=== PATIENT | female | born 1960 | race Caucasian/White ===

== ENCOUNTER 2017-04-15 10:36 | Day surgery (SDC) | payer MEDICARE, OTHER ==
[~2017-04-15 10:36] MED LIST: AMLO5 PO; ASPI325 PO; ASPI81CH PO; Augmentin 875-1 EACH PO; CARV25 PO; CARV3.125 PO; CHOL10002 PO; CLOP75 PO; Calcium Carbon650 MG PO; Cleocin HCl300 MG PO; Coreg CR20 MG PO; Coreg Cr10 MG PO; FAMO20 PO; FLUO10 PO; FLUO20; FURO20 PO; INSLI100I; INSULANI; LEVSOD50; LEVSOD75 PO; LOSA50 PO; Multivitamin1 EAC1 PO; Myfortic360 MG PO; NIFE30ER PO; OLME20; PRED5 PO; ROSU10TA; TACR1 PO; TRAVER4240; Valcyte450 MG PO; [UNRECOGNIZED DRUG - OTHER]
== END 2017-04-15 22:52 | disposition home or self-care (01) ==
LOC: WOUND 10:36
PROC: 0HBKXZZ Excision of Right Lower Leg Skin, External Approach (ICD-10-PCS; principal; 2017-04-15)
DX: Z48.00 Encounter for change or removal of nonsurgical wound dressing (principal); E10.621 Type 1 diabetes mellitus with foot ulcer; L97.212 Non-pressure chronic ulcer of right calf with fat layer exposed; E10.22 Type 1 diabetes mellitus with diabetic chronic kidney disease; Z94.0 Kidney transplant status; Z94.83 Pancreas transplant status
CPT/HCPCS: G0463

== ENCOUNTER 2017-04-22 10:40 | Day surgery (SDC) | payer MEDICARE, BC | END 2017-04-22 11:56 | disposition home or self-care (01) | LOC: WOUND 10:40 | DX: Z48.00 Encounter for change or removal of nonsurgical wound dressing (principal); E11.622 Type 2 diabetes mellitus with other skin ulcer; L97.212 Non-pressure chronic ulcer of right calf with fat layer exposed; E11.22 Type 2 diabetes mellitus with diabetic chronic kidney disease; E11.21 Type 2 diabetes mellitus with diabetic nephropathy; Z94.0 Kidney transplant status; Z94.83 Pancreas transplant status | CPT/HCPCS: G0463 ==

== ENCOUNTER 2017-04-29 10:30 | Day surgery (SDC) | payer MEDICARE, BC | END 2017-04-29 11:05 | disposition home or self-care (01) | LOC: WOUND 10:30 | DX: Z48.00 Encounter for change or removal of nonsurgical wound dressing (principal); E10.622 Type 1 diabetes mellitus with other skin ulcer; L97.812 Non-pressure chronic ulcer of other part of right lower leg with fat layer exposed; E10.21 Type 1 diabetes mellitus with diabetic nephropathy; E10.22 Type 1 diabetes mellitus with diabetic chronic kidney disease; N18.9 Chronic kidney disease, unspecified; Z94.83 Pancreas transplant status; Z94.0 Kidney transplant status | CPT/HCPCS: G0463 ==

== ENCOUNTER 2017-05-05 13:38 | Day surgery (SDC) | payer MEDICARE, BC | END 2017-05-05 22:52 | disposition home or self-care (01) | LOC: ORD 13:38 → ORSCMMR 13:38 → RAD 13:38 → ORSCMMR 13:39 → RAD 14:00 → ORD 22:52 → ORSCMMR 22:52 | PROVIDERS: Radiology Diagnostic Radiology | PROC: BT1BYZZ Fluoroscopy of Bladder and Urethra using Other Contrast (ICD-10-PCS; principal; 2017-05-05 13:30) | DX: Z87.440 Personal history of urinary (tract) infections (principal); Z79.899 Other long term (current) drug therapy; Z94.0 Kidney transplant status; Z94.83 Pancreas transplant status | CPT/HCPCS: 51600; 74455; Q9967 ==

== ENCOUNTER 2017-05-06 10:40 | Day surgery (SDC) | payer MEDICARE, BC | END 2017-05-06 14:53 | disposition home or self-care (01) | LOC: WOUND 10:40 | DX: Z48.00 Encounter for change or removal of nonsurgical wound dressing (principal); E10.21 Type 1 diabetes mellitus with diabetic nephropathy; E10.622 Type 1 diabetes mellitus with other skin ulcer; L97.212 Non-pressure chronic ulcer of right calf with fat layer exposed; Z94.0 Kidney transplant status; Z94.83 Pancreas transplant status | CPT/HCPCS: G0463 ==

== ENCOUNTER 2017-05-13 00:31 | Day surgery (SDC) | payer MEDICARE, BC | END 2017-05-13 10:59 | disposition home or self-care (01) | LOC: WOUND 00:31 | DX: Z48.00 Encounter for change or removal of nonsurgical wound dressing (principal); E10.621 Type 1 diabetes mellitus with foot ulcer; L97.212 Non-pressure chronic ulcer of right calf with fat layer exposed; E10.21 Type 1 diabetes mellitus with diabetic nephropathy; E10.22 Type 1 diabetes mellitus with diabetic chronic kidney disease | CPT/HCPCS: G0463 ==

== ENCOUNTER 2017-05-19 10:44 | Day surgery (SDC) | payer MEDICARE, BC | END 2017-05-19 23:01 | disposition home or self-care (01) | LOC: WOUND 10:44 | DX: Z48.00 Encounter for change or removal of nonsurgical wound dressing (principal); E10.622 Type 1 diabetes mellitus with other skin ulcer; E10.22 Type 1 diabetes mellitus with diabetic chronic kidney disease; E10.21 Type 1 diabetes mellitus with diabetic nephropathy; L97.212 Non-pressure chronic ulcer of right calf with fat layer exposed; Z94.0 Kidney transplant status; Z94.83 Pancreas transplant status | CPT/HCPCS: G0463 ==

== ENCOUNTER 2017-05-27 00:06 | Day surgery (SDC) | payer MEDICARE, BC | END 2017-05-27 11:40 | disposition home or self-care (01) | LOC: WOUND 00:06 | DX: Z48.00 Encounter for change or removal of nonsurgical wound dressing (principal); E10.622 Type 1 diabetes mellitus with other skin ulcer; E10.21 Type 1 diabetes mellitus with diabetic nephropathy; L97.212 Non-pressure chronic ulcer of right calf with fat layer exposed; Z94.0 Kidney transplant status; E10.22 Type 1 diabetes mellitus with diabetic chronic kidney disease; Z94.83 Pancreas transplant status | CPT/HCPCS: G0463 ==

== ENCOUNTER 2019-03-02 10:26 | Day surgery (SDC) | payer MEDICARE, BC ==
[~2019-03-02] VITALS: Ht 162.6 cm; Wt 84.2 kg
[~2019-03-02 10:26] MED LIST changes: +ATOR10 PO; +Acetaminophen650 M1 PO; +Aspir-Trin325 MG PO; +Calcium Carbon500 MG PO; +Carvedilol25 MG PO; +LEVSOD50 PO; +Prozac40 MG PO; +Synthroid/Le0.075 MG PO
--- NOTE | 2019-03-02 12:19 | NUR ---
03/02/19 1219 Balbina Garner- DR LUIS PRESENTED TO THE KASIE-OP HOLDING AREA. HE PREPPED THE PT FOR TEMPORAL ARTERY BX. PT TOLERATED PROCEDURE WELL.
== END 2019-03-02 13:32 | disposition home or self-care (01) ==
LOC: ORSCSDS 10:26
PROVIDERS: Otolaryngology
PROC: 03BS0ZX Excision of Right Temporal Artery, Open Approach, Diagnostic (ICD-10-PCS; principal; 2019-03-02 12:30)
DX: M31.6 Other giant cell arteritis (principal); I10 Essential (primary) hypertension; Z86.73 Personal history of transient ischemic attack (TIA), and cerebral infarction without residual deficits; E10.9 Type 1 diabetes mellitus without complications; Z79.899 Other long term (current) drug therapy
CPT/HCPCS: 82947; 88305; 88313; J2250; J3010; J7120

== ENCOUNTER → 2020-05-02 | Outpatient (CLI) | payer BC ==
[~2020-05-02] MED LIST changes: +DEXA4 PO; +MYCOPHENOLIC A PO
== END | disposition home or self-care (01) ==
LOC: LAB 17:54 → LAB SHORT 17:54
DX: Z08 Encounter for follow-up examination after completed treatment for malignant neoplasm (principal); D48.5 Neoplasm of uncertain behavior of skin; L57.0 Actinic keratosis; L82.0 Inflamed seborrheic keratosis; L53.8 Other specified erythematous conditions; L08.9 Local infection of the skin and subcutaneous tissue, unspecified; R60.0 Localized edema; I87.2 Venous insufficiency (chronic) (peripheral); L81.4 Other melanin hyperpigmentation; D69.2 Other nonthrombocytopenic purpura; L57.8 Other skin changes due to chronic exposure to nonionizing radiation; D22.5 Melanocytic nevi of trunk; Z85.828 Personal history of other malignant neoplasm of skin; Z87.2 Personal history of diseases of the skin and subcutaneous tissue; Z71.89 Other specified counseling
CPT/HCPCS: 87070; 87077; 87186; 87205

== ENCOUNTER 2020-07-10 10:38 | Emergency (ER) | payer BC ==
[~2020-07-10] VITALS: Ht 167.6 cm; Wt 74.8 kg
[~2020-07-10 10:38] MED LIST changes: -DEXA4 PO; -MYCOPHENOLIC A PO
[2020-07-10] MEDS ORDERED: CARV25 PO (10:59)
[2020-07-10] MEDS ORDERED: MYCOPHENOLIC A PO (11:01)
[2020-07-10] MEDS ORDERED: TACR1 PO (11:02)
[2020-07-10 11:34] LABS: BASOPHILS ABSOLUTE AUTO 0.01 K/mm3 (0.00-0.23); BASOPHILS PERCENT AUTO 0 % (0-2); EOSINOPHILS PERCENT AUTO 0 % (0-6); Hematocrit 43.7 % (33.0-51.0); Hemoglobin 13.9 g/dL (11.5-16.0); IMMATURE GRAN ABSOLUTE AUTO 0.02 K/mm3 (0.00-0.10); IMMATURE GRAN PERCENT AUTO 0 % (0-1); LYMPHOCYTES PERCENT AUTO 31 % (21-46); MONOCYTES PERCENT AUTO 12 % (4-13); Mean Corpuscular HGB 28.4 pg (26.0-34.0); Mean Corpuscular HGB Conc 31.8 g/dL (31.5-36.5); Mean Corpuscular Volume 89 fL (80-100); Mean Platelet Volume 9.9 fL (9.1-12.4); NEUTROPHILS ABSOLUTE AUTO 3.28 K/mm3 (1.96-9.15); NEUTROPHILS PERCENT AUTO 57 % (41-73); Platelet Count 169 K/mm3 (150-400); RDW Coefficient Variation 13.4 % (11.7-14.2); RDW Standard Deviation 43.9 fL (35.1-46.3); White Blood Cell Count 5.81 K/mm3 (4.00-11.30)
[2020-07-10 11:37] LABS: Base Excess Venous -1.7 mmol/L; Bicarbonate Venous 23.4 mmol/L (24.0-30.0); PCO2 Venous 35.8 mmHg (38-42); PO2 Venous 131 mmHg (38-42); pH Blood Venous 7.42 (7.34-7.37)
[2020-07-10 12:00] LABS: Alanine Aminotransfer (ALT/SGP 33 U/L (12-78); Albumin, Blood 3.3 g/dL (3.4-5.0); Albumin/Globulin Ratio 0.9 (0.8-1.8); Alk Phos 68 U/L (50-136); Anion Gap 6 mmol/L (6-16); Aspartate Aminotrans (AST/SGOT 35 U/L (12-37); Bilirubin, Total 0.5 mg/dL (0.1-1.0); Blood Urea Nitrogen 9 mg/dL (8-24); CO2, Blood 23 mmol/L (21-32); Calcium, Blood 8.7 mg/dL (8.5-10.1); Chloride, Blood 109 mmol/L (98-108); Creatinine, Blood 0.75 mg/dL (0.40-1.00); Globulin, Blood 3.7 g/dL (2.2-4.0); Glomerular Filtration Rate >60 (60-); Glucose, Blood 97 mg/dL (70-99); Potassium, Blood 4.2 mmol/L (3.5-5.5); Sodium, Blood 138 mmol/L (136-145); Troponin I <0.015 ng/mL (0.000-0.040)
[2020-07-10] MEDS ORDERED: DEXA4 PO (13:14)
== END 2020-07-10 14:39 | disposition home or self-care (01) ==
LOC: ER 10:38
PROVIDERS: Emergency Medicine
DX: U07.1 COVID-19 (principal); E11.9 Type 2 diabetes mellitus without complications; E03.9 Hypothyroidism, unspecified; I10 Essential (primary) hypertension; Z79.899 Other long term (current) drug therapy; Z88.5 Allergy status to narcotic agent; Z88.1 Allergy status to other antibiotic agents; Z86.73 Personal history of transient ischemic attack (TIA), and cerebral infarction without residual deficits
CPT/HCPCS: 36415; 71045; 80053; 82803; 83880; 84484; 85025; 93005; 93010; 99284-25; J1100